=== PATIENT | female | born 1970 | race Caucasian/White ===

== ENCOUNTER 2016-03-19 21:35 | Inpatient (IN) | payer OTHER ==
[2016-03-19] MEDS ORDERED: SODIUM CHLORIDE 0.9% 1,000 ML IV STA (21:46)
[2016-03-19] MEDS ORDERED: IPRATROPIUM-ALBUTEROL 3 ML NEB INHALATION STA (22:01)
[2016-03-19] MEDS ORDERED: PROCHLORPERAZINE 5 MG TAB PO STA (22:01)
[2016-03-19] MEDS ORDERED: FAMOTIDINE 20 MG/2 ML VIAL IV STA (22:01)
--- NOTE | 2016-03-19 22:04 | ED ---
Abdominal Pain HPI - General Source: patient, RN notes reviewed Mode of arrival: ambulatory Limitations: no limitations <Greg James - Last Filed: 03/20/16 01:22> <Jewel Potts - Last Filed: 03/20/16 01:25> - General Chief Complaint: Abdominal Pain Stated Complaint: abdominal pain Time Seen by Provider: 03/19/16 21:46 - History of Present Illness Initial Comments: 45-year-old female presents emergency Department with chief complaint of cough and congestion, vomiting. Patient states that she's been sick for over one week. Patient states it originally started with runny nose sore throat and cough. She states that she's been having posttussive vomiting. She states that she continues to have nausea and some epigastric discomfort. Patient states that she's had multiple episodes of vomiting which have been now bilious. Patient had a prior cholecystectomy and peptic ulcer disease. Patient states she used to be on omeprazole though she has not been on a last few months. Patient states that she thought she saw some specks of blood in her vomit though she was unsure. Patient states that she has not vomited recently. Patient denies any diarrhea or melena or hematochezia. Patient denies any chest pain. She states her cough is productive at times. She states she does have some wheezing though she is a smoker. (Greg James) - Related Data Home Medications Medication Instructions Recorded Confirmed Acetaminophen Tab [Tylenol Tab] 1,000 mg PO Q6HR PRN 03/19/16 03/19/16 Ibuprofen [Motrin] 400 mg PO Q8HR PRN 03/19/16 03/19/16 Allergies Allergy/AdvReac Type Severity Reaction Status Date / Time No Known Allergies Allergy Verified 03/19/16 22:13 Review of Systems ROS Other: All systems not noted in ROS Statement are negative. <Greg James - Last Filed: 03/20/16 01:22> ROS Other: All systems not noted in ROS Statement are negative. <Jewel Potts - Last Filed: 03/20/16 01:25> ROS Statement: Those systems with pertinent positive or pertinent negative responses have been documented in the HPI. Past Medical History Additional Past Medical History / Comment(s): kidney stones, hernia History of Any Multi-Drug Resistant Organisms: None Reported Past Surgical History: Cholecystectomy, Hernia Repair Past Psychological History: No Psychological Hx Reported Smoking Status: Current every day smoker Past Alcohol Use History: None Reported Past Drug Use History: Marijuana <Greg James - Last Filed: 03/20/16 01:22> General Exam Limitations: no limitations General appearance: alert, in no apparent distress Head exam: Present: atraumatic, normocephalic, normal inspection Eye exam: Present: normal appearance, PERRL, EOMI. Absent: scleral icterus, conjunctival injection, periorbital swelling ENT exam: Present: normal exam, normal oropharynx, mucous membranes moist, TM's normal bilaterally Neck exam: Present: normal inspection, full ROM. Absent: tenderness, meningismus, lymphadenopathy Respiratory exam: Present: wheezes (Bilateral). Absent: normal lung sounds bilaterally, respiratory distress, rales, rhonchi, stridor Cardiovascular Exam: Present: regular rate, normal rhythm, normal heart sounds. Absent: systolic murmur, diastolic murmur, rubs, gallop, clicks GI/Abdominal exam: Present: soft, tenderness (Mild epigastric, right upper quadrant), normal bowel sounds. Absent: distended, guarding, rebound, rigid Back exam: Absent: CVA tenderness (R), CVA tenderness (L) Neurological exam: Present: alert, oriented X3, CN II-XII intact Skin exam: Present: warm, dry, intact, normal color. Absent: rash <Greg James - Last Filed: 03/20/16 01:22> Medical Decision Making - Lab Data Result diagrams: 03/19/16 22:00 03/19/16 22:00 <Greg James - Last Filed: 03/20/16 01:22> - Lab Data Result diagrams: 03/19/16 22:00 03/19/16 22:00 <Jewel Potts - Last Filed: 03/20/16 01:25> - Medical Decision Making Patient reevaluated by myself, Dr. Potts. Abdominal discomfort has improved following pain medication. Abdomen is soft with mild epigastric tenderness. Secondary to hyponatremia hypokalemia patient will be admitted for IV fluids and further evaluation. Practitioner Yuko paged for admission for Dr. Freire , covering for hospital call. Lab and radiology results reviewed. (Jewel Potts) - Lab Data Lab Results 03/19/16 03/19/1617 Range/Units 21:50 21:50 22:00 WBC (3.8-10.6) k/uL RBC (3.80-5.40) m/uL Hgb (11.4-16.0) gm/dL Hct (34.0-46.0) % MCV (80.0-100.0) fL MCH (25.0-35.0) pg MCHC (31.0-37.0) g/dL RDW (11.5-15.5) % Plt Count (150-450) k/uL Neutrophils % % Lymphocytes % % Monocytes % % Eosinophils % % Basophils % % Neutrophils # (1.3-7.7) k/uL Lymphocytes # (1.0-4.8) k/uL Monocytes # (0-1.0) k/uL Eosinophils # (0-0.7) k/uL Basophils # (0-0.2) k/uL Hypochromasia Anisocytosis Microcytosis Sodium 126 L (137-145) mmol/L Potassium 2.9 L* (3.5-5.1) mmol/L Chloride 83 L (98-107) mmol/L Carbon Dioxide 31 H (22-30) mmol/L Anion Gap 12 mmol/L BUN 11 (7-17) mg/dL Creatinine 0.50 L (0.52-1.04) mg/dL Est GFR (MDRD) Af Amer >60 (>60 ml/min/1.73 sqM) Est GFR (MDRD) Non-Af >60 (>60 ml/min/1.73 sqM) Glucose 102 H (74-99) mg/dL Calcium 10.5 H (8.4-10.2) mg/dL Total Bilirubin 0.7 (0.2-1.3) mg/dL AST 22 (14-36) U/L ALT 26 (9-52) U/L Alkaline Phosphatase 64 (38-126) U/L Total Protein 7.4 (6.3-8.2) g/dL Albumin 4.3 (3.5-5.0) g/dL Amylase <30 L (30-110) U/L Lipase 22 L (23-300) U/L Urine Color Yellow Urine Appearance Cloudy H (Clear) Urine pH 6.0 (5.0-8.0) Ur Specific [place] 1.012 (1.001-1.035) Urine Protein Negative (Negative) Urine Glucose (UA) Negative (Negative) Urine Ketones 1+ H (Negative) Urine Blood Negative (Negative) Urine Nitrate Negative (Negative) Urine Bilirubin Negative (Negative) Urine Urobilinogen <2.0 (<2.0) mg/dL Ur Leukocyte Esterase Small H (Negative) Urine RBC 2 (0-5) /hpf Urine WBC 14 H (0-5) /hpf Ur Squamous Epith Cells 7 H (0-4) /hpf Amorphous Sediment Rare H (None) /hpf Urine Mucus Rare H (None) /hpf Urine HCG, Qual Not Detected (Not Detectd) 03/19/16 Range/Units 22:00 WBC 13.4 H (3.8-10.6) k/uL RBC 4.77 (3.80-5.40) m/uL Hgb 10.8 L (11.4-16.0) gm/dL Hct 34.5 (34.0-46.0) % MCV 72.4 L (80.0-100.0) fL MCH 22.7 L (25.0-35.0) pg MCHC 31.4 (31.0-37.0) g/dL RDW 17.0 H (11.5-15.5) % Plt Count 475 H (150-450) k/uL Neutrophils % 76 % Lymphocytes % 15 % Monocytes % 6 % Eosinophils % 1 % Basophils % 0 % Neutrophils # 10.1 H (1.3-7.7) k/uL Lymphocytes # 2.0 (1.0-4.8) k/uL Monocytes # 0.8 (0-1.0) k/uL Eosinophils # 0.1 (0-0.7) k/uL Basophils # 0.0 (0-0.2) k/uL Hypochromasia Moderate Anisocytosis Slight Microcytosis Moderate Sodium (137-145) mmol/L Potassium (3.5-5.1) mmol/L Chloride (98-107) mmol/L Carbon Dioxide (22-30) mmol/L Anion Gap mmol/L BUN (7-17) mg/dL Creatinine (0.52-1.04) mg/dL Est GFR (MDRD) Af Amer (>60 ml/min/1.73 sqM) Est GFR (MDRD) Non-Af (>60 ml/min/1.73 sqM) Glucose (74-99) mg/dL Calcium (8.4-10.2) mg/dL Total Bilirubin (0.2-1.3) mg/dL AST (14-36) U/L ALT (9-52) U/L Alkaline Phosphatase (38-126) U/L Total Protein (6.3-8.2) g/dL Albumin (3.5-5.0) g/dL Amylase (30-110) U/L Lipase (23-300) U/L Urine Color Urine Appearance (Clear) Urine pH (5.0-8.0) Ur Specific [place] (1.001-1.035) Urine Protein (Negative) Urine Glucose (UA) (Negative) Urine Ketones (Negative) Urine Blood (Negative) Urine Nitrate (Negative) Urine Bilirubin (Negative) Urine Urobilinogen (<2.0) mg/dL Ur Leukocyte Esterase (Negative) Urine RBC (0-5) /hpf Urine WBC (0-5) /hpf Ur Squamous Epith Cells (0-4) /hpf Amorphous Sediment (None) /hpf Urine Mucus (None) /hpf Urine HCG, Qual (Not Detectd) Disposition <Greg James - Last Filed: 03/20/16 01:22> <Jewel Potts - Last Filed: 03/20/16 01:25> Clinical Impression: Abdominal pain, Hypokalemia, Dehydration, Nausea & vomiting, Colitis, Hyponatremia Disposition: ADMITTED IP TO THIS HOSP Referrals: None,Stated [Primary Care Provider] - 1-2 days
[2016-03-19 22:16] LABS: Anisocytosis Slight; Basophils % (A) 0 %; CH 22.5; CHCM 31.1; Eosinophils # (A) 0.1 k/uL (0-0.7); Eosinophils % (A) 1 %; HCT 34.5 % (34.0-46.0); HDW 3.25; HGB 10.8 gm/dL (11.4-16.0); Hypochromasia Moderate; Luc # (Auto) 0.27; Luc % (Auto) 2; Lymphocytes % (A) 15 %; MCH 22.7 pg (25.0-35.0); MCHC 31.4 g/dL (31.0-37.0); MCV 72.4 fL (80.0-100.0); Mean Platelet Volume 6.2; Microcytosis Moderate; Monocytes # (A) 0.8 k/uL (0-1.0); Monocytes % (A) 6 %; Neutrophils # (A) 10.1 k/uL (1.3-7.7); Neutrophils % (A) 76 %; RBC 4.77 m/uL (3.80-5.40); WBC 13.4 k/uL (3.8-10.6); WBC (Perox) 14.04
[2016-03-19 22:22] LABS: Amorphous Sediment,Urine Rare /hpf; Appearance,Urine Cloudy (Clear); Bilirubin,Urine Negative (Negative); Glucose,Urine (UA) Negative (Negative); Ketones,Urine 1+ (Negative); Leukocyte Esterase,Urine Small (Negative); Mucus,Urine Rare /hpf; Nitrite,Urine Negative (Negative); Particle Count 3805; Protein,Urine Negative (Negative); RBC,Urine 2 /hpf (0-5); Specific Gravity,Urine 1.012 (1.001-1.035); Squamous Epithelial Cell,Urine 7 /hpf (0-4); UA Billing (MACRO vs. MICRO) MICRO; Urobilinogen,Urine <2.0 mg/dL (<2.0); WBC,Urine 14 /hpf (0-5)
[2016-03-19 22:28] LABS: ALT 26 U/L (9-52); AST 22 U/L (14-36); Alkaline Phosphatase 64 U/L (38-126); Amylase <30 U/L (30-110); Anion Gap 12 mmol/L; Blood Urea Nitrogen 11 mg/dL (7-17); Calcium 10.5 mg/dL (8.4-10.2); Carbon Dioxide 31 mmol/L (22-30); Chloride 83 mmol/L (98-107); Glucose 102 mg/dL (74-99); Non-African American GFR(MDRD) >60 (>60 ml/min/1.73 sqM); Sodium 126 mmol/L (137-145); Total Bilirubin 0.7 mg/dL (0.2-1.3); Total Protein 7.4 g/dL (6.3-8.2)
[2016-03-19] MEDS ORDERED: MORPHINE SULFATE 4 MG/ML SYRINGE IVP STA ×2 (22:29→23:49)
[2016-03-19 22:30] LABS: Potassium 2.9 mmol/L (3.5-5.1)
[2016-03-19] MEDS ORDERED: POTASSIUM CHLORIDE ER 20 MEQ TAB.ER PO STA (22:35)
--- NOTE | 2016-03-19 22:41 | XR ---
EXAMINATION TYPE: XR chest 2V DATE OF EXAM: 03/19/2016 10:35 PM COMPARISON: NONE HISTORY: Nausea vomiting and diarrhea no previous history of cough. TECHNIQUE: Frontal and lateral views of the chest are obtained. FINDINGS: Mild chronic interstitial lung changes are noted bilaterally. No focal pneumonia pneumothorax or pleural effusion is noted. Peribronchial cuffing is noted bilaterally with possible chronic bronchitis changes. The cardiac silhouette size is within normal limits. The osseous structures are intact. IMPRESSION: 1. Possible chronic bronchitis changes. 2. No active pulmonary infiltrates.
--- NOTE | 2016-03-19 22:44 | XR ---
EXAMINATION TYPE: XR KUB DATE OF EXAM: 03/19/2016 10:35 PM COMPARISON: NONE HISTORY: Nausea vomiting and diarrhea TECHNIQUE: 2 frontal upright radiographs of abdomen were obtained. FINDINGS: Mild gaseous distention of small bowel loops is noted in the abdomen with suggestion of mil d ileus and enteritis changes with few air-fluid levels. No significant bowel obstruction is noted. C holecystectomy changes are noted. Small amount of contrast is noted in the colon. No abnormal calcifi cations are noted. IMPRESSION: 1. Mild ileus in the abdomen with possible enteritis changes. 2. No significant bowel obstruction. 3. Cholecystectomy.
[2016-03-19] MEDS ORDERED: SODIUM CHLORIDE 0.9% 1,000 ML IV ONE (22:52)
[2016-03-19] MEDS ORDERED: HYOSCYAMINE SULFATE 0.125 MG TAB PO STA (22:55)
[2016-03-19] MEDS: POTASSIUM CHLORIDE 10 MEQ, LIDOCAINE 2% INJ 10 MG in SODIUM CHLORIDE 0.9% 100 ML IVPB SCH (23:10)
[2016-03-20] MEDS ORDERED: RX INFO: IV CONTRAST WAS GIVEN 1 EACH MISC MISCELLANE PRN (00:06)
[2016-03-20] MEDS: POTASSIUM CHLORIDE 10 MEQ, LIDOCAINE 2% INJ 10 MG in SODIUM CHLORIDE 0.9% 100 ML IVPB SCH ×5 (00:30→15:05)
--- NOTE | 2016-03-20 01:12 | CT ---
EXAMINATION TYPE: CT abdomen pelvis w con DATE OF EXAM: 03/20/2016 12:27 AM COMPARISON: NONE HISTORY: mid to right sided abd pain with NVD CT DLP: 385.70 mGycm Automated exposure control for dose reduction was used. TECHNIQUE: Helical acquisition of images was performed from the lung bases through the pelvis. CONTRAST: Performed without Oral Contrast and with IV Contrast, patient injected with 100 mL of Omnipaque 300. FINDINGS: LUNG BASES: No significant abnormality is appreciated. LIVER/GB: No significant abnormality is appreciated in the liver. Cholecystectomy changes are present . PANCREAS: No significant abnormality is seen. SPLEEN: No significant abnormality is seen. ADRENALS: No significant abnormality is seen. KIDNEYS: Right kidney is somewhat rotated laterally. There is mild fullness in the right renal pelvis . No hydronephrosis or obstructing stones are noted in both kidneys. RETROPERITONEAL ADENOPATHY: None visualized diffuse [id number] atherosclerotic calcification i s noted in the abdominal aorta and iliac arteries. REPRODUCTIVE ORGANS: Uterus showed thickened endometrium with menstrual cycle changes. Cystic changes are suggested in bilateral ovaries. No significant free fluid collections are noted in the pelvis. URINARY BLADDER: No significant abnormality is seen. PELVIC ADENOPATHY: None visualized. OSSEOUS STRUCTURES: No significant abnormality is seen. BOWEL: Visualized appendix is opacified with contrast in the coronal image 31 and axial image 59 and showed no significant inflammation. Moderate gas and fecal distention of colonic bowel loops is noted. Mild mucosal wall thickening is no azam in the rectosigmoid colon and possibility of colitis changes cannot be excluded. Small bowel loops appear grossly unremarkable. Stomach is fluid distended. OTHER: IMPRESSION: 1. POSSIBLE COLITIS CHANGES INVOLVING SIGMOID COLON 2. NO HYDRONEPHROSIS OR OBSTRUCTING STONES ARE NOTED IN BOTH KIDNEYS. THE RIGHT KIDNEY IS SOMEWHAT RO TATED LATERALLY. A CLINICAL CORRELATION IS SUGGESTED FOR POSSIBLE PYELONEPHRITIS INVOLVING RIGHT KIDN EY. 3. APPENDIX APPEARS UNREMARKABLE. 4. CHOLECYSTECTOMY. 5. THICKENED ENDOMETRIUM OF UTERUS WITH MENSTRUAL CYCLE CHANGES WITH CYSTIC CHANGES IN BOTH OVARIES.
[2016-03-20] MEDS ORDERED: LEVOFLOXACIN 750MG-D5W PMX 750 MG in DEXTROSE/WATER 1 150ML.BAG IVPB STA (01:21)
[2016-03-20] MEDS ORDERED: HYDROcodone/APAP 5-325MG 1 EACH TAB PO PRN (01:22)
[2016-03-20] MEDS ORDERED: ACETAMINOPHEN TAB 325 MG TAB PO PRN (01:22)
[2016-03-20] MEDS ORDERED: NALOXONE 0.4 MG/ML 1 ML VIAL IV PRN (01:22)
[2016-03-20] MEDS: MORPHINE SULFATE 4 MG/ML SYRINGE IV PRN ×5 (01:48→20:37)
[2016-03-20] MEDS ORDERED: NICOTINE 21MG/24HR PATCH TRANSDERM STA (01:57)
[2016-03-20] MEDS ORDERED: Potassium Replacement Protocol 1 EACH MISC MISCELLANE PRN (05:05)
[2016-03-20] MEDS: POTASSIUM CHLORIDE ER 20 MEQ TAB.ER PO SCH ×2 (05:48→06:29)
[2016-03-20] MEDS: SODIUM CHLORIDE 0.9% 1,000 ML IV SCH ×4 (07:27→17:37)
[2016-03-20] MEDS: metroNIDAZOLE-NS PMX 500 MG in SALINE 1 100ML.BAG IVPB SCH ×3 (08:02→23:04)
[2016-03-20] MEDS ORDERED: PANTOPRAZOLE 40 MG/10 ML VIAL IV SCH (09:00)
--- NOTE | 2016-03-20 10:08 | P.GSCN ---
History of Present Illness Consult date: 03/20/16 Reason for Consult: Abdominal pain History of present illness: 45-year-old female being seen at the request of the attending for a surgical consultation for abdominal pain 45-year-old female who presented to the emergency room on the to be evaluated for a chief complaint of developing intractable nausea vomiting and diffuse abdominal pain. Patient stated the onset of the symptoms occurred about a week or 2 ago. Had been, more symptomatic. Patient states she was told years ago that she had Crohn's disease with IBS irritable bowel syndrome diagnosed 2013 and normally has anywhere between 2-8 loose painless nonbloody stools a day patient states that she did see a heavy duty custodian and 2014 for started on medication for irritable bowel Crohn's disease not certain of the name. Stop taking the medication not sure of the timing of when that this was discontinued. Patient stated was concerned and presented to the emergency room because of the persistent nausea with epigastric discomfort and multiple bouts of vomiting inability to keep fluids down. Patient states that she just moved to the area in October. Additionally the patient is a history of having a cholecystectomy with a hernia repair in 2013. Additionally the patient states at that time she did have an EGD done for hematemesis was told had a peptic ulcer was treated with Prilosec. Patient states that she stopped taking Prilosec in October this year secondary to no insurance and lack of funding. Patient is denying any chest pain or shortness of breath. Patient was noted in the emergency room to have a sodium level of 126 with a potassium 2.9. Patient continued to report having midepigastric discomfort decision was to admit the patient to the services of the attending with a surgical consultation requested. Evaluating the patient patient currently had an emesis approximately 100 mL of bile reports epigastric discomfort persist patient states patient states since being admitted has not had any stool epigastric discomfort "seems to be worse when I move" Review of Systems Essentially unremarkable except as mentioned in the present illness Past Medical History Additional Past Medical History / Comment(s): kidney stones, hernia History of Any Multi-Drug Resistant Organisms: None Reported Past Surgical History: Cholecystectomy, Hernia Repair Additional Past Surgical History / Comment(s): Endoscopic surgery for bleeding ulcer, 2009; cholecystectomy with hernia repair, 2014 Past Anesthesia/Blood Transfusion Reactions: No Reported Reaction Past Psychological History: No Psychological Hx Reported Smoking Status: Current every day smoker Past Alcohol Use History: None Reported Past Drug Use History: Marijuana - Past Family History Mother Additional Family Medical History / Comment(s): cholecystectomy, kidney stones Medications and Allergies Home Medications Medication Instructions Recorded Confirmed Type Acetaminophen Tab [Tylenol Tab] 1,000 mg PO Q6HR PRN 03/19/16 03/19/16 History Allergies Allergy/AdvReac Type Severity Reaction Status Date / Time No Known Allergies Allergy Verified 03/19/16 22:13 Surgical - Exam Vital Signs Temp Pulse Resp BP Pulse Ox 98.7 F 105 H 18 158/88 94 L 03/19/16 21:44 03/19/16 21:44 03/19/16 21:44 03/19/16 21:44 03/19/16 21:44 GENERAL APPEARANCE: 45-year-old female patient is alert, oriented, in no acute distress. VITAL SIGNS: Reviewed HEENT: Head is normocephalic and atraumatic. Pupils are equal and reactive. The nares are patent. Oropharynx is clear without lesions. NECK: Supple without lymphadenopathy. Traches midline. HEART: S1, S2. Regular rate and rhythm. No murmur noted LUNGS: No crackles or wheezes are heard. Adequate air movement ABDOMEN: Soft, slight tenderness abdominal wall with epigastric discomfort, nondistended with good bowel sounds. No peritoneal signs. No palpable organomegaly or masses. Vomited approximately 100 mL of bile no stool states has not had a bowel movement since admission EXTREMITIES: Normal skin color and turgor. No cyanosis, rash, ulceration, clubbing or edema. Radial pedal pulses are 2/4 bilaterally. NEUROLOGICAL: No focal deficits. Strength and sensation are grossly intact. Results - Labs 03/21/16 08:08 03/21/16 08:08 Abnormal Lab Results - Last 24 Hours (Table) 03/20/16 Range/Units 03:07 Potassium 3.1 L (3.5-5.1) mmol/L Diabetes panel 03/20/16 Range/Units 03:07 Potassium 3.1 L (3.5-5.1) mmol/L Pituitary panel 03/20/16 Range/Units 03:07 Potassium 3.1 L (3.5-5.1) mmol/L Adrenal panel 03/20/16 Range/Units 03:07 Potassium 3.1 L (3.5-5.1) mmol/L Assessment and Plan Plan: Impression Present on admission intractable nausea vomiting with epigastric discomfort suspect due to acute exacerbation colitis Present on admission severe electrolyte abnormality hyponatremia hypokalemic suspect due to persistent nausea vomiting Current every day smoker Present on admission leukocytosis Present on admission intractable nausea vomiting poor oral intake clinical dehydration suspect due to colitis History of irritable bowel syndrome Crohn's disease chronic CAT scan of the abdomen and pelvis suspect colitis in sigmoid colon History of perforated peptic ulcer disease 2013 Plan Continue IV hydration as ordered for rehydration Continue antiemetics for symptomatic control of nausea vomiting Continue protonix 40 IV twice a day Continue IV Flagyl as ordered Potassium to be replaced Furthe surgical recommendations pending will follow The above dictated assessment and findings were discussed with dr Mayo Toure Impression and the plan of care have been dictated as directed. Sunshine Thomason nurse practitioner acting as a scribe for dr Mora
--- NOTE | 2016-03-20 13:30 | P.CONS ---
History of Present Illness - Reason for Consult Consult date: 03/20/16 Possible Crohn's Requesting physician: Rosita Alcala - History of Present Illness 45-year-old female no primary care physician recently moved to the [place] area presents with abdominal pain nausea vomiting diarrhea for the last 4-5 days. Passing 4-5 nonbloody bowel movements daily with intermittent nonbloody emesis. She normally passes looser bowel movements for many years sometimes several times a day sometimes not. Denies loss, fever or chills. She has a history of IBS. No history of colonoscopy. EGD in the past for perforated peptic ulcer disease. Additional past medical history kidney stones, GERD, cholecystectomy, marijuana usage, and nicotine cigarette dependency 20 years. No recent changes in diet or travels. No sick contacts. No recent antibiotics. White count 13.4. Hemoglobin 10.8. MCV 72. Potassium 2.9. BUN 11. Creatinine 0.5. CT abdomen and pelvis with IV contrast only reported as mild mucosal wall thickening in the rectosigmoid colon, small bowel loops appeared unremarkable. Review of Systems Constitutional: Denies fever, chills, sweats, weight gain, or loss. HEENT: Negative for migraines, blurred vision or loss, earaches, drainage, tinnitus, oral mucosal lesions, dysphagia, or odynophagia. CARDIAC: Negative for chest pain, arrhythmias, or palpitation. RESPIRATORY: Negative for shortness of breath, hemoptysis, cough, or sputum production. GI: See HPI for pertinent findings. : Negative for hematuria, urgency, frequency, polyuria, or dysuria. GYNc: Denies possibility of . Negative vaginal discharge. MUSCULOSKELETAL: Negative for muscle aches, swelling, arthritis, and arthralgias. NEUROLOGIC: Negative for stroke or TIA. ENDOCRINE: Negative for thyroid problems. SKIN: Negative for rash or itching. PSYCHIATRIC: Negative history for depression and anxiety All systems: negative (See HPI) Past Medical History Additional Past Medical History / Comment(s): kidney stones, hernia History of Any Multi-Drug Resistant Organisms: None Reported Past Surgical History: Cholecystectomy, Hernia Repair Additional Past Surgical History / Comment(s): Endoscopic surgery for bleeding ulcer, 2009; cholecystectomy with hernia repair, 2014 Past Anesthesia/Blood Transfusion Reactions: No Reported Reaction Past Psychological History: No Psychological Hx Reported Smoking Status: Current every day smoker Past Alcohol Use History: None Reported Past Drug Use History: Marijuana - Past Family History Mother Additional Family Medical History / Comment(s): cholecystectomy, kidney stones Medications and Allergies Home Medications Medication Instructions Recorded Confirmed Type Acetaminophen Tab [Tylenol Tab] 1,000 mg PO Q6HR PRN 03/19/16 03/19/16 History Ibuprofen [Motrin] 400 mg PO Q8HR PRN 03/19/16 03/19/16 History Allergies Allergy/AdvReac Type Severity Reaction Status Date / Time No Known Allergies Allergy Verified 03/19/16 22:13 Physical Exam Vitals: Vital Signs Temp Pulse Pulse Resp BP BP Pulse Ox 03/20/16 08:00 86 18 03/20/16 07:00 96.5 F L 86 18 151/89 97 03/20/16 06:17 97.4 F L 86 16 158/101 98 03/20/16 01:52 98.1 F 88 18 158/88 97 Intake and Output 03/19/16 03/20/16 03/20/16 22:59 06:59 14:59 Intake Total 1999 Balance 1999 Intake: Amount of Fluid Infused ( 2000 ml) Other: Voiding Method Toilet # Voids 0 # Bowel Movements 0 General appearance: The patient is alert, oriented, in no acute distress. HET: Head is normocephalic and atraumatic. Pupils are equal and reactive. Oropharynx is clear without lesions. Neck: Supple without lymphadenopathy. Trachea midline. Heart: S1 S2. Regular rate and rhythm. Lungs: No crackles or wheezes are heard. Abdomen: Soft, very mild tenderness across lower abdomen, nondistended with bowel sounds. No peritoneal signs. No palpable organomegaly or masses. Extremities: Normal skin color and turgor. No cyanosis, rash, ulceration, clubbing, or edema. Radial and pedal pulses are 2/4 bilaterally. Neurological: No focal deficits. Strength and sensation are grossly intact. Results CBC & Chem 7: 03/19/16 22:00 03/21/16 08:08 Labs: Abnormal Lab Results - Last 24 Hours (Table) 03/20/16 Range/Units 03:07 Potassium 3.1 L (3.5-5.1) mmol/L CT scan - abdomen: report reviewed CT scan - pelvis: report reviewed (Reviewed by Dr. Wylie) Assessment and Plan (1) Abdominal pain Narrative/Plan: 45-year-old female presents with intractable nausea vomiting nonbloody diarrhea for the last 4-[address] scan suggestive of possible rectosigmoid colitis with unremarkable small bowel loops. Suspect nonspecific colitis self-limiting infectious possible inflammatory possible underlying gastroenteritis. Inflammatory bowel disease felt to be less likely. Status: Acute (2) Colitis Status: Acute Plan: 1. Stool studies. Will add sed rate and CRP to morning labs. 2. Empiric antibiotics. 3. Clear liquids as tolerated. 4. Endoscopy not planned at this time. Follow up in GI office after discharge for reevaluation discussion of outpatient colonoscopy if indicated. We'll follow with you. Thank you for this kind referral and the opportunity to participate in the care of your patient. This consultation was discussed with Dr. Wylie. The impression and plan of care have been directed as dictated.
[2016-03-20] MEDS: CYCLOBENZAPRINE 5 MG TAB PO SCH ×2 (15:50→20:27)
--- NOTE | 2016-03-20 19:12 | HP ---
DATE OF ADMISSION: 03/20/2016 The patient is a 45-year-old came in with abdominal pain, nausea, vomiting, diarrhea has been going on for 4 to 5 days. Patient was having non-bloody bowel movements which improved at this point of time. Patient was found to have colitis in the sigmoid area and patient was started on antibiotics. Patient had questionable diagnosis of Crohn's disease and irritable bowel syndrome. Patient does not appear to have had any colonoscopy in the past. Patient denied any IV drug use, although I obtained a urine drug screen, which is positive for opiates and marijuana. Patient follows up with physicians in [facility]. She recently moved to this location. Patient was found to be hyponatremic with multiple electrolytes abnormalities as well. Patient was evaluated by surgical services and they consulted gastroenterology for further evaluation. Patient had a CT of the abdomen which showed sigmoid colitis as mentioned above. REVIEW OF SYSTEMS: CONSTITUTIONAL: No fever, no malaise, no fatigue. HEENT: No recent visual problems or hearing problems. Denied any sore throat. CARDIOVASCULAR: No chest pain, orthopnea, PND, no palpitations, no syncope. PULMONARY: No shortness of breath, no cough, no hemoptysis. GASTROINTESTINAL: As described in history of present illness. Patient denied any fever, chills. Patient denied any dysuria. NEUROLOGICAL: No headaches, no weakness, no numbness. HEMATOLOGICAL: Denies any bleeding or petechiae. GENITOURINARY: Denies any burning micturition, frequency, or urgency. MUSCULOSKELETAL/RHEUMATOLOGICAL: Denies any joint pain, swelling, or any muscle pain. ENDOCRINE: Denies any polyuria or polydipsia. The rest of the 14 point review of systems is negative. PAST MEDICAL HISTORY: Significant for kidney stones, hernia, cholecystectomy, hernia repair. SOCIAL HISTORY: The patient does smoke. Denied any alcohol abuse. Occasional use of marijuana. FAMILY HISTORY: Mother had cholecystectomy, kidney stones. Home medications: 1. Acetaminophen. 2. Ibuprofen. But patient's urine drug screen is positive for opiates as well as marijuana. PHYSICAL EXAMINATION: VITAL SIGNS: Temperature 97.2, pulse of 84, respiratory rate of 16, blood pressure 140/83, saturating at 96% on room air. GENERAL: The patient is alert and oriented x3, not in any acute distress. Well developed, well nourished. HEENT: Pupils are round and equally reacting to light. EOMI. No scleral icterus. No conjunctival pallor. Normocephalic, atraumatic. No pharyngeal erythema. No thyromegaly. CARDIOVASCULAR: S1 and S2 present. No murmurs, rubs, or gallops. PULMONARY: Chest is clear to auscultation, no wheezing or crackles. ABDOMEN: Soft, nontender, nondistended, normoactive bowel sounds. No palpable organomegaly. MUSCULOSKELETAL: No joint swelling or deformity. EXTREMITIES: No cyanosis, clubbing, or pedal edema. NEUROLOGICAL: Gross neurological examination did not reveal any focal deficits. SKIN: No rashes. LABORATORY DATA: CBC, CMP are abnormal for WBC count of 13.4, hemoglobin of 10.8, MCV 72.4 and probably iron deficiency anemia. I will obtain a ferritin level as well. Further evaluation can be done as an outpatient. CT of the abdomen as mentioned above. ASSESSMENT AND PLAN: 1. Colitis the patient will be treated for infectious colitis. Patient can get an outpatient colonoscopy for her questionable diagnosis of Crohn's or ulcerative colitis. Urine studies, ( ) stool cultures will be obtained. Clostridium difficile was ordered. Although her symptoms did improve significantly. 2. Leukocytosis secondary to sepsis which is again secondary to diverticulitis. 3. Marijuana use. Counseling was provided. Nicotine use, counselling was provided. 4. Hyponatremia appears to be hypervolemic hyponatremia from nausea, vomiting. Patient will be continued on IV fluids at 125 mL per hour. 5. Hypokalemia secondary to nausea, vomiting for which we will supplement.
[2016-03-20] MEDS: PANTOPRAZOLE 40 MG/10 ML VIAL IVP SCH (20:38)
[2016-03-20] MEDS: PROCHLORPERAZINE 5 MG TAB PO PRN (21:10)
[2016-03-20] MEDS: LEVOFLOXACIN 500MG-D5W PMX 500 MG in DEXTROSE/WATER 1 100ML.BAG IVPB SCH (21:10)
[2016-03-21] MEDS: MORPHINE SULFATE 4 MG/ML SYRINGE IV PRN ×6 (00:30→21:31)
[2016-03-21] MEDS: SODIUM CHLORIDE 0.9% 1,000 ML IV SCH ×3 (01:30→18:27)
[2016-03-21] MEDS: PANTOPRAZOLE 40 MG/10 ML VIAL IVP SCH ×2 (08:25→20:02)
[2016-03-21] MEDS: metroNIDAZOLE-NS PMX 500 MG in SALINE 1 100ML.BAG IVPB SCH ×3 (08:25→23:28)
[2016-03-21] MEDS: CYCLOBENZAPRINE 5 MG TAB PO SCH ×2 (08:25→20:02)
[2016-03-21 09:06] LABS: ALT 38 U/L (9-52); AST 21 U/L (14-36); Alkaline Phosphatase 58 U/L (38-126); Anion Gap 11 mmol/L; Blood Urea Nitrogen 5 mg/dL (7-17); Calcium 7.5 mg/dL (8.4-10.2); Carbon Dioxide 24 mmol/L (22-30); Chloride 98 mmol/L (98-107); Glucose 102 mg/dL (74-99); Non-African American GFR(MDRD) >60 (>60 ml/min/1.73 sqM); Potassium 3.2 mmol/L (3.5-5.1); Sodium 133 mmol/L (137-145); Total Bilirubin 0.5 mg/dL (0.2-1.3)
--- NOTE | 2016-03-21 09:46 | P.PN ---
Subjective Principal diagnosis: Colitis 45-year-old female admitted with intractable nausea vomiting abdominal pain and diarrhea with CT imaging suggestive of possible focal colitis. No recurrence of diarrhea or emesis since admission. Afebrile. Tolerating clear liquids. Sed rate CRP pending. Objective - Vital Signs Vital signs: Vital Signs Temp 98.2 F 03/21/16 07:00 Pulse 82 03/21/16 07:00 Resp 20 03/21/16 07:00 BP 131/70 03/21/16 07:00 Pulse Ox 96 03/21/16 07:00 Intake & Output 03/20/16 03/21/16 03/21/16 18:59 06:59 18:59 Intake Total 1925 480 Balance 1925 480 Intake: Intake, IV Titration 1575 Amount Levofloxacin 500Mg-D5w 100 Pmx 500 mg In Dextrose/ Water 1 100ml.bag @ 100 mls/hr IVPB Q24H JULIUS Rx#: [id number] Sodium Chloride 0.9% 1, 1375 000 ml @ 125 mls/hr IV . Q8H JULIUS Rx#:[id number] metroNIDAZOLE-NS PMX 500 100 mg In Saline 1 100ml.bag @ 100 mls/hr IVPB Q8HR JULIUS Rx#:[id number] Oral 350 480 Other: Voiding Method Toilet Toilet # Voids 3 1 - Exam General appearance: The patient is alert, oriented, in no acute distress. HET: Head is normocephalic and atraumatic. Pupils are equal and reactive. Oropharynx is clear without lesions. Neck: Supple without lymphadenopathy. Trachea midline. Heart: S1 S2. Regular rate and rhythm. Lungs: No crackles or wheezes are heard. Abdomen: Soft, very mild tenderness across lower abdomen, nondistended with bowel sounds. No peritoneal signs. No palpable organomegaly or masses. Extremities: Normal skin color and turgor. No cyanosis, rash, ulceration, clubbing, or edema. Radial and pedal pulses are 2/4 bilaterally. Neurological: No focal deficits. Strength and sensation are grossly intact. - Labs CBC & Chem 7: 03/19/16 22:00 03/21/16 08:08 Labs: Abnormal Lab Results - Last 24 Hours (Table) 03/20/16 03/21/16 Range/Units 15:15 08:08 Sodium 133 L (137-145) mmol/L Potassium 3.2 L (3.5-5.1) mmol/L BUN 5 L (7-17) mg/dL Creatinine 0.42 L (0.52-1.04) mg/dL Glucose 102 H (74-99) mg/dL Calcium 7.5 L (8.4-10.2) mg/dL Total Protein 6.0 L (6.3-8.2) g/dL Albumin 3.2 L (3.5-5.0) g/dL Urine Opiates Screen Detected H (NotDetected) U Marijuana (THC) Screen Detected H (NotDetected) Assessment and Plan (1) Abdominal pain Narrative/Plan: 45-year-old female presents with intractable nausea vomiting nonbloody diarrhea for the last 4-[address] scan suggestive of possible rectosigmoid colitis with unremarkable small bowel loops. Suspect nonspecific colitis self-limiting infectious possible inflammatory possible underlying gastroenteritis. Inflammatory bowel disease felt to be less likely. Status: Acute (2) Colitis Status: Acute Plan: 1. Stool studies requested patient currently is not having diarrhea. Sed rate and CRP pending. 2. Continue Empiric antibiotics for now. 3. Full liquids. 4. Endoscopy not planned at this time. Follow up in GI office after discharge for reevaluation discussion of outpatient colonoscopy if indicated. We'll follow with you. Assessment and plan a care discussed with Dr. Wylie.
[2016-03-21] MEDS: PROCHLORPERAZINE 5 MG TAB PO PRN (09:48)
[2016-03-21] MEDS: NICOTINE 21MG/24HR PATCH TRANSDERM SCH (09:54)
[2016-03-21 10:04] LABS: Anisocytosis Slight; Basophils # (A) 0.1 k/uL (0-0.2); Basophils % (A) 0 %; CH 22.6; CHCM 29.5; Eosinophils # (A) 0.1 k/uL (0-0.7); Eosinophils % (A) 1 %; HCT 37.1 % (34.0-46.0); HDW 3.05; HGB 10.6 gm/dL (11.4-16.0); Hypochromasia Marked; Luc # (Auto) 0.13; Luc % (Auto) 1; Lymphocytes # (A) 2.1 k/uL (1.0-4.8); Lymphocytes % (A) 18 %; MCHC 28.7 g/dL (31.0-37.0); MCV 76.7 fL (80.0-100.0); Mean Platelet Volume 7.7; Microcytosis Slight; Monocytes # (A) 0.8 k/uL (0-1.0); Monocytes % (A) 7 %; Neutrophils # (A) 8.4 k/uL (1.3-7.7); Neutrophils % (A) 73 %; RBC 4.83 m/uL (3.80-5.40); RDW 17.5 % (11.5-15.5); WBC 11.5 k/uL (3.8-10.6); WBC (Perox) 11.54
[2016-03-21] MEDS ORDERED: POTASSIUM CHLORIDE 2 MEQ/ML 20 ML VIAL IVPB SCH (11:00)
[2016-03-21 11:21] LABS: C Reactive Protein <5.0 mg/L (<10.0)
[2016-03-21 11:34] LABS: Erythrocyte Sedimentation Rate 7 mm/hr (0-20)
[2016-03-21] MEDS: POTASSIUM CHLORIDE 10 MEQ in WATER FOR INJECTION 1 100ML.BAG IVPB SCH ×2 (12:36→13:42)
[2016-03-21] MEDS ORDERED: IPRATROPIUM-ALBUTEROL 3 ML NEB INHALATION PRN (12:50)
--- NOTE | 2016-03-21 12:50 | P.PN ---
Subjective 45-year-old female being seen by surgical services this morning at the request of the attending. Patient's initial presentation was intractable nausea vomiting with abdominal pain and frequent stooling. CAT scan was obtained on admission it did suggest possible colitis. Since being admitted the patient has had no stool. Patient states after getting IV antibiotic Flagyl causes a nausea sensation and has had an emesis since admission he this morning the patient states abdominal pain has resolved. Did note patient is being followed by gastroneurology service who indicated that there is no endoscopic planned at this time. They're recommending a follow-up GI visit after discharge for reevaluation for outpatient colonoscopy. This was reinforced to the patient. It is noted this morning the patient has coarse rhonchi throughout with prolonged expiratory wheezing noted patient does have a history significant for nicotine dependency states smokes one pack a day. Objective - Vital Signs Vital signs: Vital Signs Temp 98.2 F 03/21/16 07:00 Pulse 82 03/21/16 07:00 Resp 20 03/21/16 07:00 BP 131/70 03/21/16 07:00 Pulse Ox 96 03/21/16 07:00 Intake & Output 03/20/16 03/21/16 03/21/16 18:59 06:59 18:59 Intake Total 1925 480 Balance 1925 480 Intake: Intake, IV Titration 1575 Amount Levofloxacin 500Mg-D5w 100 Pmx 500 mg In Dextrose/ Water 1 100ml.bag @ 100 mls/hr IVPB Q24H JULIUS Rx#: [id number] Sodium Chloride 0.9% 1, 1375 000 ml @ 125 mls/hr IV . Q8H JULIUS Rx#:[id number] metroNIDAZOLE-NS PMX 500 100 mg In Saline 1 100ml.bag @ 100 mls/hr IVPB Q8HR JULIUS Rx#:[id number] Oral 350 480 Other: Voiding Method Toilet Toilet # Voids 3 1 - Exam GENERAL APPEARANCE: 45-year-old female patient is alert, oriented, in no acute distress. Sitting up in bed VITAL SIGNS: Reviewed HEENT: Head is normocephalic and atraumatic. Pupils are equal and reactive. The nares are patent. Oropharynx is clear without lesions. NECK: Supple without lymphadenopathy. Traches midline. HEART: S1, S2. Regular rate and rhythm. Denying chest pain LUNGS: Coarse rhonchi throughout audibly congested harsh nonproductive cough noted bilateral prolonged expiratory wheezing noted sats 96% on room air ABDOMEN: Soft, nontender, nondistended with good bowel sounds. No peritoneal signs. No palpable organomegaly or masses no stool since admission. No facial grimacing with palpitation to the abdominal wall no guarding no rebound states epigastric pain resolving states no burning on urination or frequency urgency currently tolerating diet. EXTREMITIES: Normal skin color and turgor. No cyanosis, rash, ulceration, clubbing or edema. Radial pedal pulses are 2/4 bilaterally. NEUROLOGICAL: No focal deficits. Strength and sensation are grossly intact. - Labs CBC & Chem 7: 03/21/16 08:08 03/21/16 08:08 Labs: Abnormal Lab Results - Last 24 Hours (Table) 03/20/16 03/21/16 03/21/16 Range/Units 15:15 08:08 08:08 WBC 11.5 H (3.8-10.6) k/uL Hgb 10.6 L (11.4-16.0) gm/dL MCV 76.7 L (80.0-100.0) fL MCH 22.0 L (25.0-35.0) pg MCHC 28.7 L (31.0-37.0) g/dL RDW 17.5 H (11.5-15.5) % Neutrophils # 8.4 H (1.3-7.7) k/uL Sodium 133 L (137-145) mmol/L Potassium 3.2 L (3.5-5.1) mmol/L BUN 5 L (7-17) mg/dL Creatinine 0.42 L (0.52-1.04) mg/dL Glucose 102 H (74-99) mg/dL Calcium 7.5 L (8.4-10.2) mg/dL Total Protein 6.0 L (6.3-8.2) g/dL Albumin 3.2 L (3.5-5.0) g/dL Urine Opiates Screen Detected H (NotDetected) U Marijuana (THC) Screen Detected H (NotDetected) Assessment and Plan Plan: Impression Present on admission intractable nausea vomiting with epigastric discomfort suspect due to acute exacerbation colitis Present on admission severe electrolyte abnormality hyponatremia hypokalemic suspect due to persistent nausea vomiting Current every day smoker 1 pack a day greater than 20 year history Present on admission leukocytosis improving resolving Present on admission intractable nausea vomiting poor oral intake clinical dehydration suspect due to colitis History of irritable bowel syndrome Crohn's disease chronic CAT scan of the abdomen and pelvis suspect colitis in sigmoid colon History of peptic ulcer disease 2013 Plan Continue IV hydration as ordered for rehydration Continue antiemetics for symptomatic control of nausea vomiting Continue protonic 40 IV twice a day Continue IV Flagyl and IV Levaquin as ordered Potassium to be replaced by the attending would benefit from aerosol bronchodilators defer to the attending to address Surgical service will sign off and re-eval as indicated there is no surgical intervention warranted for the abdominal pain The above dictated assessment and findings were discussed with dr Mayo Toure Impression and the plan of care have been dictated as directed. Sunshine Thomason nurse practitioner acting as a scribe for dr Mora
[2016-03-21] MEDS: POTASSIUM CHLORIDE ER 20 MEQ TAB.ER PO SCH ×2 (14:21→14:22)
[2016-03-21] MEDS: MAGNESIUM SULFATE-D5W PMX 1 GM in DEXTROSE/WATER 1 100ML.BAG IVPB SCH ×3 (16:14→20:02)
[2016-03-21] MEDS: IPRATROPIUM-ALBUTEROL 3 ML NEB INHALATION SCH ×2 (16:23→20:55)
[2016-03-21 16:59] LABS: Potassium 3.6 mmol/L (3.5-5.1)
[2016-03-21] MEDS: LEVOFLOXACIN 500MG-D5W PMX 500 MG in DEXTROSE/WATER 1 100ML.BAG IVPB SCH (21:31)
[2016-03-22] MEDS: MORPHINE SULFATE 4 MG/ML SYRINGE IV PRN ×3 (01:23→09:55)
[2016-03-22] MEDS: SODIUM CHLORIDE 0.9% 1,000 ML IV SCH ×2 (05:25→10:50)
[2016-03-22 07:28] VITALS: RESP 20; TEMP 97.8
[2016-03-22] MEDS: IPRATROPIUM-ALBUTEROL 3 ML NEB INHALATION SCH ×4 (07:39→15:14)
[2016-03-22] MEDS: metroNIDAZOLE-NS PMX 500 MG in SALINE 1 100ML.BAG IVPB SCH ×2 (08:18→16:42)
[2016-03-22] MEDS: NICOTINE 21MG/24HR PATCH TRANSDERM SCH (08:18)
[2016-03-22] MEDS: CYCLOBENZAPRINE 5 MG TAB PO SCH (08:18)
[2016-03-22] MEDS: PANTOPRAZOLE 40 MG/10 ML VIAL IVP SCH (08:18)
--- NOTE | 2016-03-22 08:51 | DS ---
DATE OF ADMISSION: 03/20/2016 DATE OF DISCHARGE: The patient is a 45-year-old admitted with nausea, vomiting. Patient was treated for colitis. Patient has multiple other medical issues including marijuana use, counseling was provided; opiate abuse, counseling was provided. The patient was hyponatremic, hypomagnesemic and hypokalemia. Patient was given IV fluids with correction of hypovolemic hyponatremia and I believe patient is an alcoholic, although she declines that and counseling regarding that was provided as well. Patient's BUN and creatinine improved. The patient's potassium and magnesium will be supplemented. After that, patient will be discharged. The patient's leukocytosis improved. Patient will be discharged on 7 more days of metronidazole and ciprofloxacin. Patient has symptomatic improvement. Will advance diet. If patient is able to tolerate, patient will be discharged today. FINAL DIAGNOSES: 1. Colitis. The patient was treated for infectious colitis. Patient will need outpatient endoscopy. Patient will follow with Dr. Louann Wylie as an outpatient in 2 weeks. Patient will be referred to Dr. Julieth Tovar in about a week. Patient is from outside of [facility]. 2. Leukocytosis secondary to sepsis, which improved. 3. Marijuana use counseling was provided. 4. Multiple electrolyte abnormalities as mentioned above. Patient will be discharged today with ciprofloxacin, omeprazole, metronidazole and tramadol. Followups as mentioned above. Spent greater than 35 minutes in total discharge process.
[2016-03-22 09:07] LABS: Anion Gap 10 mmol/L; Blood Urea Nitrogen 5 mg/dL (7-17); Calcium 7.6 mg/dL (8.4-10.2); Carbon Dioxide 23 mmol/L (22-30); Chloride 103 mmol/L (98-107); Glucose 106 mg/dL (74-99); Magnesium 1.9 mg/dL (1.6-2.3); Non-African American GFR(MDRD) >60 (>60 ml/min/1.73 sqM); Potassium 3.8 mmol/L (3.5-5.1); Sodium 136 mmol/L (137-145)
--- NOTE | 2016-03-22 12:17 | P.PN ---
Subjective Principal diagnosis: Colitis 45-year-old female admitted with intractable nausea vomiting abdominal pain and diarrhea with CT imaging suggestive of possible focal colitis. No recurrence of diarrhea or emesis since admission. Afebrile. Tolerating soft diet. Sed rate CRP within normal limits. Abdominal pain improving. Objective - Vital Signs Vital signs: Vital Signs Temp 97.8 F 03/22/16 07:00 Pulse 95 03/22/16 07:52 Resp 20 03/22/16 07:00 BP 114/84 03/22/16 07:00 Pulse Ox 97 03/22/16 07:00 Intake & Output 03/21/16 03/22/16 03/22/16 18:59 06:59 18:59 Intake Total 480 240 Balance 480 240 Intake: Oral 480 240 Other: Voiding Method Toilet Toilet Toilet # Voids 2 2 - Exam General appearance: The patient is alert, oriented, in no acute distress. HET: Head is normocephalic and atraumatic. Pupils are equal and reactive. Oropharynx is clear without lesions. Neck: Supple without lymphadenopathy. Trachea midline. Heart: S1 S2. Regular rate and rhythm. Lungs: No crackles or wheezes are heard. Abdomen: Soft, very mild tenderness across lower abdomen, nondistended with bowel sounds. No peritoneal signs. No palpable organomegaly or masses. Extremities: Normal skin color and turgor. No cyanosis, rash, ulceration, clubbing, or edema. Radial and pedal pulses are 2/4 bilaterally. Neurological: No focal deficits. Strength and sensation are grossly intact. - Labs CBC & Chem 7: 03/21/16 08:08 03/22/16 08:20 Labs: Abnormal Lab Results - Last 24 Hours (Table) 03/21/16 03/21/16 03/22/16 Range/Units 08:08 16:36 08:20 Sodium 133 L 136 L (137-145) mmol/L BUN 5 L (7-17) mg/dL Creatinine 0.41 L (0.52-1.04) mg/dL Glucose 106 H (74-99) mg/dL Calcium 7.6 L (8.4-10.2) mg/dL Magnesium 1.2 L (1.6-2.3) mg/dL Assessment and Plan (1) Abdominal pain Narrative/Plan: 45-year-old female presents with intractable nausea vomiting nonbloody diarrhea for the last 4-[address] scan suggestive of possible rectosigmoid colitis with unremarkable small bowel loops. Suspect nonspecific colitis self-limiting infectious possible inflammatory possible underlying gastroenteritis. Inflammatory bowel disease felt to be less likely. Status: Acute (2) Colitis Status: Acute Plan: 1. Agreeable for discharge. Low residue diet as tolerated for the next few days. 2. Return to GI office 7-10 days for reevaluation and discussion an outpatient colonoscopy. Assessment and plan of care discussed with Dr. Wylie.
[2016-03-22 15:09] VITALS: BP 126/68; PULSE 103
[2016-03-22] MEDS ORDERED: PANTOPRAZOLE 40 MG TABLET PO SCH (17:30)
--- NOTE | 2016-03-23 18:28 | DS ---
DATE OF ADMISSION: 03/20/2016 DATE OF DISCHARGE: 03/22/2016 FINAL DIAGNOSES: 1. Acute colitis possibly infectious. 2. Leukocytosis. 3. History of THC. 4. Multiple electrolyte abnormalities. DISCHARGE DISPOSITION: The patient is being discharged in stable condition with guarded prognosis. HISTORY OF PRESENT ILLNESS: This 45-year-old woman with past medical history of multiple medical problems as mentioned was admitted with nausea, vomiting and other GI symptoms. The patient was seen in conjunction with Dr. Alcala and as well as Dr. Wylie. Care was coordinated. The patient improved significantly. CT scan showed possible colitis. On exam, vitals are stable. CARDIOVASCULAR SYSTEM: S1, S2. ABDOMEN: Soft. Nervous system: No focal deficits. DISCHARGE ADVICE: 1. Diet is cardiac. 2. Activity limited until follow-up. 3. Follow up with Dr. Connell in one week. 4. Follow up with Dr. Wylie as advised. Medications are as follows: 1. Tylenol 1000 mg q.6 p.r.n. 2. Cipro 500 mg p.o. b.i.d. for one week. 3. Omeprazole 40 mg daily for 2 weeks. 4. Flagyl 500 mg t.i.d. for one week. 5. Ultram 50 mg q.4 p.r.n. Once again, the patient was discharged in stable condition with guarded prognosis.
== END 2016-03-22 18:02 | disposition home or self-care (01) | DRG 872 ==
LOC: EC 21:35 → 4MS4W 03-20 01:22
PROVIDERS: ADMIT Internal Medicine; ATTEND Internal Medicine
DX: A41.9 Sepsis, unspecified organism (principal); E87.1 Hypo-osmolality and hyponatremia; A09 Infectious gastroenteritis and colitis, unspecified; E83.42 Hypomagnesemia; E86.0 Dehydration; E87.6 Hypokalemia; F10.20 Alcohol dependence, uncomplicated; F11.10 Opioid abuse, uncomplicated; F12.90 Cannabis use, unspecified, uncomplicated; F17.210 Nicotine dependence, cigarettes, uncomplicated; K21.9 Gastro-esophageal reflux disease without esophagitis
CPT/HCPCS: 36415; 71020; 74000; 74177; 80048; 80051; 80053; 80306; 81001; 81025; 82150; 82728; 83690; 83735; 84132; 85025; 85652; 86140; 87086; 94640; 96361; 96365; 96366; 96368; 96375; 96376; 99285